=== PATIENT | male | born 1970 | race African-American/Black ===

== ENCOUNTER 2016-09-15 21:53 | Emergency (ER) | payer BC, OTHER ==
[~2016-09-15] VITALS: Ht 167.6 cm; Wt 129.3 kg
[~2016-09-15 21:53] MED LIST: GLUC1CAP30 PO
[2016-09-15 23:01] LABS: BASOPHILS # (AUTO) 0.3 K/uL (0.0-0.2); BASOPHILS % (AUTO) 2.6 % (0.0-2.0); EOSINOPHILS # (AUTO) 0.3 K/uL (0.0-0.7); EOSINOPHILS % (AUTO) 3.4 % (0.0-7.0); HEMATOCRIT 38.5 % (40.0-50.0); HEMOGLOBIN 12.7 g/dL (14.0-18.0); LYMPHOCYTES # (AUTO) 3.4 K/uL (0.8-4.8); LYMPHOCYTES % (AUTO) 34.4 % (20.5-51.5); MEAN CORPUSCULAR HEMOGLOBIN 25.8 uug (27.0-31.0); MEAN CORPUSCULAR HGB CONC 33 g/dL (32.0-37.0); MEAN CORPUSCULAR VOLUME 78.6 fL (82.0-92.0); MONOCYTES # (AUTO) 0.8 K/uL (0.1-1.30); MONOCYTES % (AUTO) 8.3 % (0.0-11.0); NEUTROPHILS # (AUTO) 5.1 K/uL (1.8-8.9); NEUTROPHILS % (AUTO) 51.3 % (38.5-71.5); PLATELET COUNT (AUTO) 283 K/uL (150-450); RED CELL DISTRIBUTION WIDTH 15.4 % (11.5-14.5); WHITE BLOOD COUNT (AUTO) 9.9 K/uL (4.0-11.2)
[2016-09-15] MEDS ORDERED: IBUPROFEN 800 MG TABLET PO ONE (23:30)
[2016-09-15] MEDS ORDERED: OXYCODONE/APAP 5-325 MG TABLET PO ONE (23:30)
[2016-09-15] MEDS ORDERED: OXYCODONE/APAP 5-325 MG TABLET ONE (23:38)
[2016-09-15] MEDS ORDERED: IBUPROFEN 800 MG TABLET ONE (23:38)
--- NOTE | 2016-09-15 23:39 | NUR ---
Patient discharged to home in stable conditon. Written and verbal after care instructions given. Patient verbalizes understanding of instructions.
== END 2016-09-15 23:40 | disposition home or self-care (01) ==
LOC: ER 21:54
DX: M13.831 Other specified arthritis, right wrist (principal); I10 Essential (primary) hypertension; E11.9 Type 2 diabetes mellitus without complications
CPT/HCPCS: 36415; 73110; 84550; 85025; A4663

== ENCOUNTER 2019-08-01 17:35 | Emergency (ER) | payer BC, OTHER ==
[~2019-08-01] VITALS: Ht 167.6 cm; Wt 129.3 kg
[2019-08-01] MEDS ORDERED: ALBUTEROL SULFATE 2.5 MG/3 ML NEBU ONE ×2 (18:13→19:00)
[2019-08-01] MEDS ORDERED: ALBUTEROL SULFATE 2.5 MG/3 ML NEBU NEB ONE ×2 (18:15→19:00)
[2019-08-01] MEDS ORDERED: predniSONE 10 MG TABLET PO ONE (19:00)
[2019-08-01] MEDS ORDERED: IPRATROPIUM BROMIDE 0.5 MG/2.5 ML NEBU ONE (19:00)
[2019-08-01] MEDS ORDERED: IPRATROPIUM BROMIDE 0.5 MG/2.5 ML NEBU NEB ONE (19:00)
[2019-08-01] MEDS ORDERED: predniSONE 20 MG TABLET ONE (19:08)
--- NOTE | 2019-08-01 19:10 | NUR ---
Xray at bedside.
--- NOTE | 2019-08-01 19:41 | NUR ---
Patient discharged to home in stable conditon. Written and verbal after care instructions given. Patient verbalizes understanding of instructions. Pt ambulated out of ER with steady gait, no acute signs of distress, VSS, all belongings taken.
[2019-08-01 19:42] VITALS: BP 168/93
== END 2019-08-01 19:42 | disposition home or self-care (01) ==
LOC: ER 17:35
DX: J20.9 Acute bronchitis, unspecified (principal); I10 Essential (primary) hypertension; J45.909 Unspecified asthma, uncomplicated; E11.9 Type 2 diabetes mellitus without complications; Z79.899 Other long term (current) drug therapy
CPT/HCPCS: 71045; 94640 ×3; 99284; J7512; A4663; J3590

== ENCOUNTER 2021-03-07 18:54 | Inpatient (IN) | payer BC, OTHER ==
[~2021-03-07] VITALS: Ht 167.6 cm; Wt 140.6 kg
[~2021-03-07 18:54] MED LIST changes: -GLUC1CAP30 PO; +LISI40TA13 PO; +METF-440 PO; +[UNRECOGNIZED DRUG - OTHER]
--- NOTE | 2021-03-07 21:43 | NUR ---
PATIENT C/O COUGH, SOB, FATIGUE AND SORETHROAT X9 DAYS. PATIENT CAME INTO ER FOR WORSENING SOB.
--- NOTE | 2021-03-07 22:03 | NUR ---
Dr. Montenegro on bedside for MSE.
[2021-03-07] MEDS ORDERED: IBUPROFEN 400 MG TABLET PO ONE (22:15)
[2021-03-07] MEDS ORDERED: IBUPROFEN 400 MG TABLET ONE (22:18)
[2021-03-07 22:35] LABS: HEMATOCRIT 40.4 % (36.7-47.1); MEAN CORPUSCULAR HEMOGLOBIN 26.5 uug (23.8-33.4); MEAN CORPUSCULAR VOLUME 80.4 fL (73.0-96.2); PLATELET COUNT (AUTO) 207 K/uL (152-348)
[2021-03-07 22:44] LABS: CREATININE 1.1 mg/dL (0.6-1.3); POTASSIUM 3.4 mmol/L (3.5-5.1)
[2021-03-07 23:01] LABS: BILIRUBIN,TOTAL 0.4 mg/dL (0.2-1.0); TOTAL PROTEIN, SERUM 8.2 g/dL (6.4-8.2)
[2021-03-08 00:20] LABS: *BILIRUBIN,URIN NEGATIVE (NEGATIVE); *BLOOD, URINE NEGATIVE (NEGATIVE); *CLARITY,URINE CLEAR (CLEAR); *COLOR,URINE YELLOW (YELLOW); *KETONES,URINE 2+ (NEGATIVE); LEUKOCYTE ESTERASE ,URINE NEGATIVE (NEGATIVE); NITRITE, URINE NEGATIVE (NEGATIVE); PH,URINE 5.5 (5.0-8.0); UGLUCOSE NEGATIVE (NEGATIVE)
[2021-03-08 00:37] LABS: BACTERIA,URINE NONE SEEN /HPF (NONE SEEN); MUCUS,URINE FEW /LPF (0-FEW); RBC,URINE 0-3 /HPF (0-3); SQUAMOUS EPITHELIAL CELL,UR NONE SEEN /HPF (NONE SEEN); WBC,URINE 0-3 /HPF (0-3)
--- NOTE | 2021-03-08 03:14 | NUR ---
[facility] panel call placed. Spoke to Francesca, she stated she will get a hold of Dr. Riley for admitting.
--- NOTE | 2021-03-08 03:24 | NUR ---
Jose C Riley DNP, conference service coordinator for [facility] accepted patient to Tele floor.
--- NOTE | 2021-03-08 03:42 | NUR ---
Dr. Montenegro on panel call with BELTRAN Baker. Patient accepted for admission to telemetry unit. Whitney CAVAZOS.
[2021-03-08] MEDS ORDERED: ALBUTEROL SULFATE 8 GM HFA.AER.AD IH PRN (03:45)
[2021-03-08] MEDS ORDERED: ONDANSETRON 4 MG/2 ML VIAL IV PRN (03:45)
[2021-03-08] MEDS ORDERED: DEXTROSE 50% 50 ML DISP.SYRIN IV PRN (04:00)
[2021-03-08] MEDS ORDERED: POTASSIUM CHLORIDE 20 MEQ TAB.PRT.SR PO ONE ×2 (04:15→10:15)
[2021-03-08] MEDS ORDERED: POTASSIUM CHLORIDE 20 MEQ TAB.PRT.SR ONE (04:22)
--- NOTE | 2021-03-08 06:50 | NUR ---
Pt. admitted to telemetry unit, room 316, under care of BELTRAN Riley. [employer] completed.
[2021-03-08] MEDS: BLOOD SUGAR DIAGNOSTIC 1 EACH STRIP VI SCH ×4 (07:30→20:54)
[2021-03-08 08:51] VITALS: BP 161/68
[2021-03-08] MEDS ORDERED: LISINOPRIL 10 MG TABLET PO SCH (09:00)
[2021-03-08] MEDS: LISINOPRIL 20 MG TABLET PO SCH (09:22)
[2021-03-08] MEDS: ACETAMINOPHEN 325 MG TABLET PO PRN ×2 (09:22→21:20)
[2021-03-08] MEDS: INSULIN REGULAR, HUMAN 300 UNIT/3 ML VIAL SQ PRN ×4 (09:24→20:57)
[2021-03-08] MEDS: ASPIRIN 81 MG TAB.CHEW PO SCH (09:24)
[2021-03-08] MEDS: DEXAMETHASONE SOD PHOSPHATE 10 MG INJ IV SCH (09:25)
[2021-03-08] MEDS: ASCORBIC ACID 500 MG TABLET PO SCH (09:25)
[2021-03-08] MEDS: ZINC SULFATE 220 MG CAPSULE PO SCH (09:25)
[2021-03-08] MEDS: ENOXAPARIN SODIUM 40 MG/0.4 ML DISP.SYRIN SQ SCH (09:26)
[2021-03-08] MEDS ORDERED: ALLO300T2 PO (15:15)
[2021-03-08 15:47] VITALS: BP 145/66
--- NOTE | 2021-03-08 17:49 | NUR ---
Pt stable throughout the shift. Denies any acute distress or pain at this time. On room air, tolerating well. NSR on the monitor. Blood sugar monitored closely and sliding scale protocol implemented. Comfort care and needs attended. Isolation precaution maintained. Safety precautions in place. Chart checks done. Will endorse to oncoming nurse
[2021-03-08 20:20] VITALS: BP 132/47
--- NOTE | 2021-03-08 21:21 | NUR ---
Temperature 102.7. Cooling measures initiated, Tylenol 650 mg given as ordered and needed. Encouraged increased oral fluid intake as tolerated. Will monitor. Esteban Alexandra NP made aware.
--- NOTE | 2021-03-08 22:05 | NUR ---
Lissette LOPEZ HAND LENS POLISHER was here made aware about patient latest temperature. No new order given.
[2021-03-09 00:27] VITALS: BP 142/75
[2021-03-09] MEDS: ACETAMINOPHEN 325 MG TABLET PO PRN ×2 (05:27→12:05)
[2021-03-09 05:34] VITALS: BP 144/77
[2021-03-09] MEDS: BLOOD SUGAR DIAGNOSTIC 1 EACH STRIP VI SCH ×2 (06:17→10:51)
--- NOTE | 2021-03-09 06:30 | NUR ---
Continue cooling measures as needed. Latest temp 100.5. Tylenol given as needed and ordered. Will continue to monitor.
[2021-03-09 07:19] LABS: HEMATOCRIT 39.7 % (36.7-47.1); MEAN CORPUSCULAR HEMOGLOBIN 26.5 uug (23.8-33.4); MEAN CORPUSCULAR VOLUME 80.6 fL (73.0-96.2); PLATELET COUNT (AUTO) 203 K/uL (152-348)
[2021-03-09 07:32] LABS: MAGNESIUM 1.9 mg/dL (1.8-2.4); POTASSIUM 3.4 mmol/L (3.5-5.1)
[2021-03-09] MEDS: ASCORBIC ACID 500 MG TABLET PO SCH (08:02)
[2021-03-09] MEDS: ENOXAPARIN SODIUM 40 MG/0.4 ML DISP.SYRIN SQ SCH (08:02)
[2021-03-09] MEDS: ZINC SULFATE 220 MG CAPSULE PO SCH (08:02)
[2021-03-09] MEDS: ASPIRIN 81 MG TAB.CHEW PO SCH (08:02)
[2021-03-09] MEDS: LISINOPRIL 20 MG TABLET PO SCH (08:02)
[2021-03-09] MEDS: DEXAMETHASONE SOD PHOSPHATE 10 MG INJ IV SCH (08:12)
[2021-03-09] MEDS ORDERED: POTASSIUM CHLORIDE 20 MEQ TAB.PRT.SR PO ONE (09:30)
[2021-03-09] MEDS: INSULIN REGULAR, HUMAN 300 UNIT/3 ML VIAL SQ PRN (11:24)
[2021-03-09 12:00] VITALS: BP 112/68
--- NOTE | 2021-03-09 13:17 | NUR ---
dc orders received noted and carried out,dc heplock per md orders,dc instruction and education given to the pt .pt said he will isolate him self at home.pt said he will follow up with his pcp in one week .pt left the facility via walking from the hospital in stable condition
== END 2021-03-09 13:15 | disposition home or self-care (01) | DRG 177 ==
LOC: ER 18:56 → TELE3 03-08 06:37
PROVIDERS: ADMIT Internal Medicine; ATTEND Internal Medicine
DX: U07.1 COVID-19 (principal); J12.82 Pneumonia due to coronavirus disease 2019; Z68.43 Body mass index [BMI] 50.0-59.9, adult; E66.01 Morbid (severe) obesity due to excess calories; E11.65 Type 2 diabetes mellitus with hyperglycemia; Z87.891 Personal history of nicotine dependence; E87.6 Hypokalemia; I10 Essential (primary) hypertension; J45.909 Unspecified asthma, uncomplicated; M10.9 Gout, unspecified; Z79.84 Long term (current) use of oral hypoglycemic drugs; Z79.899 Other long term (current) drug therapy
CPT/HCPCS: 36415; 70030-TC; 71045; 83615; 83735; 84100; 85025; 85730; 86140; 87040; 93005; A4663; G0378; J1100; J1650; J1815; J3535

== ENCOUNTER 2021-10-28 18:32 | Emergency (ER) | payer OTHER ==
[~2021-10-28] VITALS: Ht 167.6 cm; Wt 147.4 kg
[~2021-10-28 18:32] MED LIST changes: +ALLO300T2 PO; -[UNRECOGNIZED DRUG - OTHER]
--- NOTE | 2021-10-28 18:52 | NUR ---
Dr. Sherman at bedside for MSE.
--- NOTE | 2021-10-28 19:33 | NUR ---
Xray at bedside.
[2021-10-28] MEDS ORDERED: ASPIRIN 325 MG TABLET PO ONE (20:00)
[2021-10-28] MEDS ORDERED: ASPIRIN 325 MG TABLET ONE (20:07)
[2021-10-28 20:10] LABS: HEMATOCRIT 41.6 % (36.7-47.1); MEAN CORPUSCULAR HEMOGLOBIN 26.4 uug (23.8-33.4); PLATELET COUNT (AUTO) 253 K/uL (152-348)
[2021-10-28 20:18] LABS: CARBON DIOXIDE 27 mmol/L (21-32); CHLORIDE 106 mmol/L (98-107); CREATININE 1.2 mg/dL (0.6-1.3); GLUCOSE 104 mg/dL (74-106); POTASSIUM 3.3 mmol/L (3.5-5.1); UREA NITROGEN, BLOOD 12 mg/dL (7-18)
[2021-10-28 20:31] LABS: ALANINE AMINOTRANSFERASE 48 U/L (16-63); ALKALINE PHOSPHATASE 79 U/L (50-136); ASPARTATE AMINOTRANSFERASE 15 U/L (15-37); BILIRUBIN,DIRECT 0.1 mg/dL (0.0-0.2); BILIRUBIN,TOTAL 0.3 mg/dL (0.2-1.0); TOTAL PROTEIN, SERUM 7.7 g/dL (6.4-8.2)
[2021-10-28] MEDS ORDERED: POTASSIUM BICARBONATE/CIT AC 25 MEQ TABLET.EFF ONE (20:55)
[2021-10-28] MEDS ORDERED: CLONIDINE HCL 0.1 MG TABLET ONE (20:56)
[2021-10-28] MEDS ORDERED: POTASSIUM BICARBONATE/CIT AC 25 MEQ TABLET.EFF PO ONE (21:00)
[2021-10-28] MEDS ORDERED: CLONIDINE HCL 0.1 MG TABLET PO ONE (21:00)
--- NOTE | 2021-10-28 21:45 | NUR ---
Pt out of ER for CT.
--- NOTE | 2021-10-28 21:55 | NUR ---
Pt back to ER from CT.
--- NOTE | 2021-10-29 01:27 | NUR ---
Patient does not wish to proceed with medical care recommended by Dr. Sherman. Patient given information related to possible complications, up to and including , which could occur as a result of leaving the hospital at this time. Patient verbalizes understanding of risks involved due to leaving against medical advice. Patient has signed AMA form. Pt out of ER with steady gait, no acute signs of distress, VSS, all belongings taken, IV site discontinued.
[2021-10-29] MEDS ORDERED: CLONIDINE HCL 0.1 MG TABLET ONE (01:29)
[2021-10-29] MEDS ORDERED: CLONIDINE HCL 0.1 MG TABLET PO ONE (01:30)
[2021-10-29 01:33] VITALS: BP 173/98
== END 2021-10-29 01:33 | disposition left against medical advice (07) ==
LOC: ER 18:38
DX: R07.89 Other chest pain (principal); I10 Essential (primary) hypertension; Z53.29 Procedure and treatment not carried out because of patient's decision for other reasons; E66.01 Morbid (severe) obesity due to excess calories; Z68.43 Body mass index [BMI] 50.0-59.9, adult; Z20.822 Contact with and (suspected) exposure to COVID-19; J45.909 Unspecified asthma, uncomplicated; Z86.16 Personal history of COVID-19; E11.9 Type 2 diabetes mellitus without complications; M10.9 Gout, unspecified; Z79.84 Long term (current) use of oral hypoglycemic drugs; Z79.899 Other long term (current) drug therapy; Z82.49 Family history of ischemic heart disease and other diseases of the circulatory system; R00.1 Bradycardia, unspecified; R91.8 Other nonspecific abnormal finding of lung field
CPT/HCPCS: 36415; 71045; 71250; 84443; 84484; 85025; 93005; A4663